=== PATIENT | female | born 1990 | race Caucasian/White ===

== ENCOUNTER 2016-12-18 10:00 | Emergency (ER) | payer SELFPAY ==
[~2016-12-18] VITALS: Ht 162.6 cm; Wt 125.0 kg
[2016-12-18 10:02] VITALS: BP 145/99; PULSE 120; RESP 18; TEMP 103.1; O2SAT 96
[2016-12-18] MEDS ORDERED: IBUPROFEN 600 MG TAB PO ONE (10:30)
--- NOTE | 2016-12-18 10:30 | PD ---
HPI Chief Complaint: Fever Time Seen by Provider: 10:09 Travel History International Travel<30 days: No Contact w/Intl Traveler<30days: No Traveled to known affect area: No History of Present Illness HPI 26yo F with PMH of PCOS, asthma, migraine headache presents to the ED with multiple complaints today. States it started with left ear pain, then throat pain and fever yesterday. Pt then had some productive cough, headache, tightness in chest after vomiting, NBNB vomiting, generalized weakness. Denies any sob, abdominal pain, focal weakness or numbness, diarrhea, urinary complaints. Pt states that she was vomiting over the toilet today and then had an episode of syncope and found herself on the floor. PFSH Past Medical History Asthma: Yes Diminished Hearing: No Medical other: Yes (pcos) ?: Not LMP: IUD Menopausal: No : 1 Past Surgical History Appendectomy: Yes Section: Yes Cholecystectomy: Yes Gynecologic Surgery: Yes (OVARIAN CAUTERY) Tympanostomy Tube: Yes Other Surgery: Yes (TUBES BILAT EARS) Social History Alcohol Use: No Tobacco Use: No Substance Use: No Allergies-Medications (Allergen,Severity, Reaction): Coded Allergies: Advair (Verified Allergy, Intermediate, shakes/dizzy/vomits, 12/18/16) Reported Meds & Prescriptions Reported Meds & Active Scripts Active Tylenol (Acetaminophen) 325 Mg Tab 650 Mg PO Q6H PRN Review of Systems Except as stated in HPI: all other systems reviewed are Neg Physical Exam Narrative GENERAL: 26yo F in mild distress. SKIN: Focused skin assessment warm/dry. HEAD: Atraumatic. Normocephalic. EYES: Pupils equal and round at 4mm bilaterally. EOMI. No scleral icterus. No injection or drainage. ENT:. Throat: +Bilateral tonsillar edema and exudate. Uvula midline. Right TM wnl. Left TM: Only half visualized because of cerumen impaction, no dullness or pus behind TM. NECK: No nuchal rigidity. +Anterior cervical lymphadenopathy. CARDIOVASCULAR: Regular rate and rhythm. No murmur appreciated. RESPIRATORY: No accessory muscle use. Clear to auscultation. Breath sounds equal bilaterally. GASTROINTESTINAL: Abdomen soft, mild RUQ ttp. No rebound tenderness or guarding. MUSCULOSKELETAL: No obvious deformities. No clubbing. No cyanosis. No edema. NEUROLOGICAL: Awake and alert. No obvious cranial nerve deficits. Motor grossly within normal limits. Sensation intact. Normal speech. PSYCHIATRIC: Appropriate mood and affect; insight and judgment normal. Data Data Last Documented VS Vital Signs Date Time Temp Pulse Resp B/P Pulse Ox O2 Delivery O2 Flow Rate FiO2 12/18/16 13:23 98.9 12/18/16 11:00 113 16 133/61 98 Room Air Orders Complete Blood Count With Diff (12/18/16 10:20) Comprehensive Metabolic Panel (12/18/16 10:20) Prothrombin Time / Inr (Pt) (12/18/16 10:20) Act Partial Throm Time (Ptt) (12/18/16 10:20) Blood Culture (12/18/16 10:20) Troponin I (12/18/16 10:20) Electrocardiogram (12/18/16 ) Ibuprofen (Motrin) (12/18/16 10:30) Ct Brain W/O Iv Contrast(Rout) (12/18/16 ) Chest, Single Ap (12/18/16 ) Bhcg Screen Qualitative (12/18/16 10:20) Lactic Acid Sepsis Protocol (12/18/16 10:20) Influenzae A/B Antigen (12/18/16 10:20) Urinalysis - C+S If Indicated (12/18/16 10:20) Ed Urine Pregnancytest Poc (12/18/16 10:20) Group A Rapid Strep Screen (12/18/16 10:30) Ondansetron Inj (Zofran Inj) (12/18/16 10:45) Urine Culture (12/18/16 10:45) Sodium Chlor 0.9% 1000 Ml Inj (Ns 1000 M (12/18/16 11:45) Penicillin G Benzathine Inj (Bicillin L- (12/18/16 12:45) Labs Laboratory Tests Test 12/18/16 12/18/16 10:45 10:58 Urine Collection Type CLEAN CATCH Urine Color YELLOW Urine Turbidity SLIGHT Urine pH 7.0 Urine Specific [place] 1.023 Urine Protein TRACE mg/dL Urine Glucose (UA) NEG mg/dL Urine Ketones NEG mg/dL Urine Occult Blood SMALL Urine Nitrite NEG Urine Bilirubin NEG Urine Leukocyte Esterase SMALL Urine RBC 4-9 /hpf Urine WBC 6-8 /hpf Urine Squamous Epithelial > 8 /hpf Cells Urine Bacteria MOD /hpf Microscopic Urinalysis Comment CULTURE INDICATED Urine Collection Time 10:45 White Blood Count 15.4 TH/MM3 Red Blood Count 4.85 MIL/MM3 Hemoglobin 12.0 GM/DL Hematocrit 34.7 % Mean Corpuscular Volume 71.5 FL Mean Corpuscular Hemoglobin 24.7 PG Mean Corpuscular Hemoglobin 34.6 % Concent Red Cell Distribution Width 14.4 % Platelet Count 210 TH/MM3 Mean Platelet Volume 8.5 FL Neutrophils (%) (Auto) 88.2 % Lymphocytes (%) (Auto) 6.5 % Monocytes (%) (Auto) 3.9 % Eosinophils (%) (Auto) 0.5 % Basophils (%) (Auto) 0.9 % Neutrophils # (Auto) 13.6 TH/MM3 Lymphocytes # (Auto) 1.0 TH/MM3 Monocytes # (Auto) 0.6 TH/MM3 Eosinophils # (Auto) 0.1 TH/MM3 Basophils # (Auto) 0.1 TH/MM3 CBC Comment AUTO DIFF Differential Comment AUTO DIFF CONFIRMED Prothrombin Time 11.2 SEC Prothromb Time International 1.0 RATIO Ratio Activated Partial 30.1 SEC Thromboplast Time Sodium Level 139 MEQ/L Potassium Level 4.1 MEQ/L Chloride Level 104 MEQ/L Carbon Dioxide Level 28.7 MEQ/L Anion Gap 6 MEQ/L Blood Urea Nitrogen 9 MG/DL Creatinine 0.80 MG/DL Estimat Glomerular Filtration 85 ML/MIN Rate Random Glucose 105 MG/DL Lactic Acid Level 1.6 mmol/L Calcium Level 8.6 MG/DL Total Bilirubin 0.5 MG/DL Aspartate Amino Transf 10 U/L (AST/SGOT) Alanine Aminotransferase 19 U/L (ALT/SGPT) Alkaline Phosphatase 96 U/L Troponin I LESS THAN 0.02 NG/ML Total Protein 8.0 GM/DL Albumin 3.4 GM/DL Beta HCG, Qualitative LESS THAN 1 MIU/ML [facility] Medical Decision Making Medical Screen Exam Complete: Yes Emergency Medical Condition: Yes Interpretation(s) Sinus tachycardia at 120bpm. Normal axis. No ST segment elevation or depression. Differential Diagnosis Strep pharyngitis vs. Pneumonia vs. viral syndrome vs. influenza vs. UTI Narrative Course 26yo F with multiple complaints. Pt is febrile at 103.1F. Will give ibuprofen since pt took acetaminophen this morning. Tachycardic at 120bpm which is likely secondary to fever. Will do sepsis work up. Repeat temp after ibuprofen is 99.1F. Labs reviewed, leukocytosis at 15.4. Lactic acid normal at 1.6. negative. Troponin negative. Chest pain is very atypical and I do not think it is cardiac. CXR negative. CT brain was obtained because she fell and hit her head. CT brain unremarkable. UA showed moderate bacteria. +>8 Squamous, likely contamination, will wait for culture. Rapid strep positive for Group A strep. Influenza negative. Will treat for strep pharyngitis. Pt given NS IVF. Diagnosis Primary Impression: Strep pharyngitis Patient Instructions: General Instructions Departure Forms: Tests/Procedures, Work Release Enter return to work date: Dec 20, 2016 Additional Instructions: Please follow up with your PMD in 3-7 days. Return to the ED if symptoms worsen. Med/Other Pt SpecificInfo: Prescription(s) given Scripts Acetaminophen (Tylenol)325 Mg [id number] Mg PO Q6H PRN (PAIN SCALE 1 TO 4) #20 TAB Ref 0 Prov:Antionette Cordero DO 12/18/16 Disposition: 01 DISCHARGE HOME Condition: Stable Antionette Cordero DO Dec 18, 2016 10:30
[2016-12-18] MEDS ORDERED: ONDANSETRON HCL 4 MG/2 ML VIAL IV PUSH ONE (10:45)
[2016-12-18 11:00] VITALS: BP 133/61; PULSE 113; RESP 16; TEMP 99.1; O2SAT 98
[2016-12-18 11:10] LABS: BLOOD, URINE SMALL (NEG); GLUCOSE,URINE NEG (NEG); KETONE, URINE NEG (NEG); NITRITE,URINE NEG (NEG)
[2016-12-18 11:16] LABS: METHOD OF COLLECTION CLEAN CATCH; URINE COLOR YELLOW (YELLW/STRAW)
[2016-12-18 11:17] LABS: AUTOMATED NEUTROPHIL # 13.6 TH/MM3 (1.8-7.7); BASOPHIL # 0.1 TH/MM3 (0-0.2); BASOPHIL % 0.9 % (0.0-2.0); EOSINOPHIL # 0.1 TH/MM3 (0-0.4); EOSINOPHIL % 0.5 % (0.0-4.0); HEMATOCRIT 34.7 % (35.0-46.0); LYMPH % 6.5 % (9.0-44.0); MEAN CELL VOLUME 71.5 FL (80.0-100.0); MEAN CORPUSCULAR HEMOGLOBIN 24.7 PG (27.0-34.0); MEAN CORPUSCULAR HGB CONC 34.6 % (32.0-36.0); MONO % 3.9 % (0.0-8.0); NEUT % 88.2 % (16.0-70.0); PLATELET COUNT 210 TH/MM3 (150-450); RED BLOOD COUNT 4.85 MIL/MM3 (4.00-5.30); RED CELL DISTRIBUTION WIDTH 14.4 % (11.6-17.2); WHITE BLOOD COUNT 15.4 TH/MM3 (4.0-11.0)
[2016-12-18 11:17] LABS: BACTERIA, URINE MOD /hpf; COMMENT (UR) CULTURE INDICATED; CULTURE IF INDICATED CULTURE INDICATED; SQUAMOUS EPITHELIAL CELL URINE > 8 /hpf (0-5)
[2016-12-18 11:18] LABS: CHLORIDE 104 MEQ/L (98-107); HEMO FLAGS AUTO DIFF; POTASSIUM 4.1 MEQ/L (3.5-5.1); SODIUM (NA) 139 MEQ/L (136-145)
[2016-12-18 11:22] LABS: ANION GAP 6 MEQ/L (5-15); APTT (PATIENT) 30.1 SEC (24.3-30.1); BICARBONATE 28.7 MEQ/L (21.0-32.0); BLOOD UREA NITROGEN 9 MG/DL (7-18); PROTHROMBIN TIME - PATIENT 11.2 SEC (9.8-11.6)
[2016-12-18 11:25] LABS: ALT (GPT) 19 U/L (10-53); AST (GOT) 10 U/L (15-37); GLOMERULAR FILTRATION RATE 85 ML/MIN (>89)
[2016-12-18 11:27] LABS: TOTAL BILIRUBIN ADULT 0.5 MG/DL (0.2-1.0)
[2016-12-18 11:28] LABS: ALKALINE PHOSPHATASE 96 U/L (45-117)
--- NOTE | 2016-12-18 11:29 | RADRPT ---
EXAM DATE/TIME: 12/18/2016 11:01 [facility] COMPARISON: No previous studies available for comparison. INDICATIONS : Fever and congestion with chest pressure since this morning. MEDICAL HISTORY : None. SURGICAL HISTORY : None. ENCOUNTER: Initial ACUITY: 1 day PAIN SCORE: 4/10 LOCATION: Bilateral chest FINDINGS: A single view of the chest demonstrates the lungs to be symmetrically aerated without evidence of mas s, infiltrate or effusion. The cardiomediastinal contours are unremarkable. Osseous structures are intact. CONCLUSION: 1. No acute cardiopulmonary disease. Cordell Berry MD on December 18, 2016 at 11:27 Board Certified Radiologist. This report was verified electronically.
[2016-12-18 11:32] LABS: BHCG SCREEN QUALITATIVE LESS THAN 1 MIU/ML (0-5)
[2016-12-18] MEDS ORDERED: SODIUM CHLOR 0.9% 1000 ML INJ 1,000 ML IV ONE (11:45)
[2016-12-18 11:50] LABS: SCAN/DIFF AUTO DIFF CONFIRMED
--- NOTE | 2016-12-18 11:53 | EKG ---
Date Performed: 12/18/2016 Time Performed: 10:31:43 PTAGE: 26 years EKG: SINUS TACHYCARDIA ABNORMAL RHYTHM ECG NO PREVIOUS TRACING DOCTOR: Jasson Craig Interpretating Date/Time 12/18/2016 11:51:43
--- NOTE | 2016-12-18 12:10 | RADRPT ---
EXAM DATE/TIME: 12/18/2016 11:43 [facility] COMPARISON: No previous studies available for comparison. INDICATIONS : Syncopal episode, dizziness, headache. RADIATION DOSE: 63.56 CTDIvol (mGy) MEDICAL HISTORY : Migraines, Asthma. SURGICAL HISTORY : None. ENCOUNTER: Initial ACUITY: 1 day PAIN SCALE: 5/10 LOCATION: Bilateral cranial TECHNIQUE: Multiple contiguous axial images were obtained of the head. Using automated exposure control and adj ustment of the mA and/or kV according to patient size, radiation dose was kept as low as reasonably a chievable to obtain optimal diagnostic quality images. DICOM format image data is available electro nically for review and comparison. FINDINGS: There is no evidence for intracranial hemorrhage, mass effect, mass lesions, edema, or extra-axial fl uid collections. The visualized bony structures appear intact. The ventricles are normal size for t he patient's age. There are no signs of acute infarction for technique. CONCLUSION: Unremarkable study. Ulises Dempsey MD on December 18, 2016 at 12:07 Board Certified Radiologist. This report was verified electronically.
[2016-12-18] MEDS ORDERED: TYLE325T PO (12:37)
[2016-12-18] MEDS ORDERED: PENICILLIN G BENZATHINE 1,200,000 UNITS/2 ML SYRINGE IM ONE (12:45)
[2016-12-18 13:23] VITALS: TEMP 98.9
== END 2016-12-18 13:45 | disposition home or self-care (01) ==
LOC: PHED 10:00
DX: J02.0 Streptococcal pharyngitis (principal); B95.0 Streptococcus, group A, as the cause of diseases classified elsewhere; R53.1 Weakness; R00.0 Tachycardia, unspecified; R07.89 Other chest pain
CPT/HCPCS: 70450; 71010; 80053; 81001; 83605; 84484; 84703; 85025; 85610; 85730; 87040; 87086; 87804; 87880; 93005; 96361; 96372; 96374; 99285; J0561; J2405; J7030